=== PATIENT | female | born 1990 | race Caucasian/White ===

== ENCOUNTER 2016-11-07 08:04 | Outpatient (CLI) | payer OTHER ==
[2016-11-07 12:52] LABS: BASOPHILS % (AUTO) 0.5 %; EOSINOPHILS # (AUTO) 0.1 10^3/uL (0.0-0.7); EOSINOPHILS % (AUTO) 2.6 %; HCT - HEMATOCRIT 40.5 % (37.0-47.0); HGB - HEMOGLOBIN 13.8 g/dL (12.0-16.0); LYMPHOCYTES # (AUTO) 2.6 10^3/uL (1.5-3.5); LYMPHOCYTES % (AUTO) 46.3 %; MEAN CORPUSCULAR HEMOGLOBIN 28.6 pg (27.0-31.0); MEAN CORPUSCULAR HGB CONC 34.2 g/dL (32.0-36.0); MEAN CORPUSCULAR VOLUME 83.6 fL (81.0-99.0); MEAN PLATELET VOLUME 8.4 fL (7.9-10.8); MONOCYTES # (AUTO) 0.4 10^3/uL (0.0-1.0); MONOCYTES % (AUTO) 7.7 %; NEUTROPHILS # (AUTO) 2.4 10^3/uL (1.5-6.6); NEUTROPHILS % (AUTO) 42.9 %; RED BLOOD COUNT 4.84 10^6/uL (4.20-5.40); RED CELL DISTRIBUTION WIDTH 12.1 % (12.0-15.0); UNCORRECTED WHITE BLOOD COUNT 5.7 x10^3/uL; WHITE BLOOD COUNT 5.7 x10^3/uL (4.8-10.8)
[2016-11-07 12:54] LABS: H. PYLORI IGG ANTIBODY Negative (Negative); HPYLORI NEG QC Negative (Negative); HPYLORI POS QC POSITIVE (Positive)
[2016-11-07 13:16] LABS: BILIRUBIN,TOTAL 0.5 mg/dL (0.2-1.0); BUN - BLOOD UREA NITROGEN 10 mg/dL (6-20); CARBON DIOXIDE - CO2 25 mmol/L (21-32); CHLORIDE 104 mmol/L (101-111); CHOL/HDL RATIO 4.6 (<4.4); CHOLESTEROL 221 mg/dL; CREATININE 0.9 mg/dL (0.4-1.0); GFR - MDRD 76 (>89); GLUCOSE 92 mg/dL (70-100); HDL CHOLESTEROL 48 mg/dL; LDL/HDL RATIO 2.9 (<4.4); POTASSIUM 3.4 mmol/L (3.5-5.0); SODIUM 138 mmol/L (135-145); TOTAL PROTEIN 7.3 g/dL (6.7-8.2); TRIGLYCERIDES 160 mg/dL; VLDL CHOLESTEROL 32 mg/dL
== END 2016-11-07 08:05 | disposition home or self-care (01) ==
LOC: LAB.WCP 08:04
PROVIDERS: ATTEND Physician Assistant Medical
DX: Z00.00 Encounter for general adult medical examination without abnormal findings (principal); R10.13 Epigastric pain
CPT/HCPCS: 36415; 80053; 80061; 84443; 85025; 87339

== ENCOUNTER 2016-11-10 11:39 | Outpatient (CLI) | payer OTHER ==
--- NOTE | 2016-11-10 12:15 | Ultrasound Report ---
COMPLETE ABDOMINAL ULTRASOUND: 11/10/2016 CLINICAL INDICATION: Epigastric pain. TECHNIQUE: Real-time scanning was performed with signs and displays sales representative static images obtained. FINDINGS: The liver measures 13.3 cm. Hepatic echotexture is normal. No intrahepatic biliary dilatat ion or focal parenchymal lesion is present. The common bile duct measures 2 mm. The gallbladder is no rmal, as is the pancreas. The kidneys are normal, with the right measuring 10.0 cm, and the left nik uring 10.9 cm. The spleen measures 11.8 cm. A small splenule is noted in the splenic hilum. The abdom inal aorta is normal in caliber. The inferior vena cava is unremarkable. No free fluid is present. IMPRESSION: NORMAL ABDOMINAL ULTRASOUND. JOB #: [id number] EXT JOB #:[id number]
== END 2016-11-10 11:40 | disposition home or self-care (01) ==
LOC: DI 11:39
PROVIDERS: ATTEND Physician Assistant Medical
DX: R10.13 Epigastric pain (principal)
CPT/HCPCS: 76700

== ENCOUNTER 2016-12-09 12:16 | Outpatient (CLI) | payer OTHER ==
[2016-12-09] MEDS ORDERED: SODIUM CHLORIDE 0.9% IV ONE ×2 (16:29→16:47)
[2016-12-09] MEDS ORDERED: SINCALIDE IV ONE ×2 (16:29→16:47)
--- NOTE | 2016-12-09 16:33 | Nuclear Medicine Report ---
EXAM: HEPATOBILIARY SCAN WITH CCK/KINEVAC ADMINISTRATION EXAM DATE: 12/09/2016 03:50 PM. CLINICAL HISTORY: Epigastric pain. COMPARISON: Ultrasound 11/10/2016. TECHNIQUE: Following the intravenous administration of 5.3 mCi of Tc99m Mebrofenin, a hepatobiliary s can was done centered on the liver and gallbladder in multiple sequential images and projections. Following the intravenous administration of 2.1 mcg of CCK/ Kinevac over the course of approximately 60 minutes, dynamic imaging was done and the gallbladder ejection fraction was calculated. FINDINGS: Normal extraction of tracer from the blood pool indicating normal hepatocellular function. The liver size and shape is grossly within normal limits. Appearance of tracer in the biliary tree as early as 10 minutes, within normal limits. Appearance of tracer in the gallbladder as early as 10 minutes, within normal limits, with good progr ession of filling throughout the remainder of the initial hour. Appearance of tracer in the small bowel as early as 50 minutes, within normal limits. With CCK administration, the gallbladder demonstrates an effective contraction. The gallbladder eject ion fraction is calculated to be 51%, well above the lower limit of normal of 38% for a 60-minute inj ection. IMPRESSION: 1. Patent cystic duct. 2. Patent common bile duct. 3. Negative for acute or chronic cholecystitis. 4. Gallbladder ejection fraction of 51%. [facility] Referring Provider Line: [phone] SITE ID: [id number]
== END 2016-12-09 12:17 | disposition home or self-care (01) ==
LOC: DI 12:16
PROVIDERS: ATTEND Physician Assistant Medical
DX: R10.31 Right lower quadrant pain (principal)
CPT/HCPCS: 78227; A9537

== ENCOUNTER 2020-02-07 08:33 | Outpatient (CLI) | payer OTHER ==
--- NOTE | 2020-02-08 16:32 | Ultrasound Report ---
LIMITED ULTRASOUND OF LEFT BREAST: 02/07/2020 CLINICAL: Palpable left breast lump. No prior exams were available for comparison. Color flow and real-time ultrasound of the left breast 3 o'clock region were performed. Morelos scale images of the real-time examination were reviewed. There is a benign 0.3 cm x 0.3 cm x 0.4 cm oval cyst with a smooth internal wall in the left breast a t 3 o'clock anterior depth 4 cm from the nipple. This oval cyst is anechoic. This correlates as pal pated. Color flow imaging demonstrates that there is adjacent vascularity. IMPRESSION: BENIGN There is no sonographic evidence of malignancy. The 0.3 cm x 0.3 cm x 0.4 cm oval cyst in the left breast most likely is a simple cyst or a sebaceous cyst and is benign. Screening mammography beginning at age 40 is recommended. Findings and recommendations were conveyed to the patient at time of exam. This exam was interpreted at Station ID: [id number]. Electronically Signed By: Lexie pollock/:02/07/2020 09:31:42 Ultrasound BI-RADS: 2 Benign BI-RADS CATEGORY: (2) - 2 Unspecified - other recall n/a LATERALITY: (B)
== END 2020-02-07 08:34 | disposition home or self-care (01) ==
LOC: DI 08:33
PROVIDERS: ATTEND Physician Assistant Medical
DX: N60.02 Solitary cyst of left breast (principal)
CPT/HCPCS: 76642

== ENCOUNTER 2020-05-16 10:08 | Outpatient (CLI) | payer OTHER ==
[2020-05-16 10:37] LABS: BASOPHILS % (AUTO) 0.5 %; EOSINOPHILS # (AUTO) 0.4 10^3/uL (0.0-0.7); EOSINOPHILS % (AUTO) 4.8 %; HGB - HEMOGLOBIN 15.1 g/dL (12.0-16.0); LYMPHOCYTES # (AUTO) 2.7 10^3/uL (1.5-3.5); LYMPHOCYTES % (AUTO) 36.4 %; MEAN CORPUSCULAR HEMOGLOBIN 29.2 pg (27.0-31.0); MEAN CORPUSCULAR HGB CONC 33.5 g/dL (32.0-36.0); MEAN CORPUSCULAR VOLUME 87.1 fL (81.0-99.0); MEAN PLATELET VOLUME 9.3 fL (7.9-10.8); MONOCYTES # (AUTO) 0.5 10^3/uL (0.0-1.0); MONOCYTES % (AUTO) 6.9 %; NEUTROPHILS # (AUTO) 3.8 10^3/uL (1.5-6.6); NEUTROPHILS % (AUTO) 51.1 %; PLT - PLATELET COUNT 259 10^3/uL (130-450); RED BLOOD COUNT 5.18 10^6/uL (4.20-5.40); RED CELL DISTRIBUTION WIDTH 11.6 % (12.0-15.0); WHITE BLOOD COUNT 7.5 x10^3/uL (4.8-10.8)
[2020-05-16 11:13] LABS: ALBUMIN 4.2 g/dL (3.2-5.5); ALBUMIN/GLOBULIN RATIO 1.2 (1.0-2.2); ALKALINE PHOSPHATASE 71 IU/L (42-121); ALT ALANINE AMINOTRANSFERASE 24 IU/L (10-60); AST ASPARTATE AMINOTRANSFERASE 19 IU/L (10-42); BILIRUBIN,TOTAL 0.5 mg/dL (0.2-1.0); BUN - BLOOD UREA NITROGEN 18 mg/dL (6-20); CALCIUM 9.4 mg/dL (8.5-10.3); CARBON DIOXIDE - CO2 26 mmol/L (21-32); CHLORIDE 101 mmol/L (101-111); CHOL/HDL RATIO 4.5 (<4.4); CHOLESTEROL 230 mg/dL; CREATININE 0.8 mg/dL (0.4-1.0); GLUCOSE 96 mg/dL (70-100); HDL CHOLESTEROL 51 mg/dL; LDL CHOLESTEROL,CALCULATED 162 mg/dL; LDL/HDL RATIO 3.2 (<4.4); THYROID STIMULATING HORMONE 1.04 uIU/mL (0.34-5.60); TOTAL PROTEIN 7.7 g/dL (6.7-8.2); VLDL CHOLESTEROL 17 mg/dL
[2020-05-16 11:15] LABS: FREE T4 (FREE THYROXINE) 0.89 ng/dL (0.58-1.64)
== END 2020-05-16 10:09 | disposition home or self-care (01) ==
LOC: LAB 10:08
PROVIDERS: ATTEND Nurse Practitioner Obstetrics & Gynecology
DX: Z00.00 Encounter for general adult medical examination without abnormal findings (principal); N92.6 Irregular menstruation, unspecified
CPT/HCPCS: 36415; 80053; 80061; 82951; 83036; 83721; 84439; 84443; 85025

== ENCOUNTER 2021-08-16 14:38 | Outpatient (CLI) | payer OTHER ==
--- NOTE | 2021-08-16 16:03 | XRAY Report ---
PROCEDURE: Knee 4 View RT INDICATIONS: INTERNAL DERANGEMENT, RIGHT KNEE TECHNIQUE: 4 views of the right knee(s) were acquired. COMPARISON: None. FINDINGS: BONES/JOINT: No acute, displaced fracture or dislocation. Trace suprapatellar joint effusion. SOFT TISSUES: No significant abnormality. IMPRESSION: 1.No acute osseous abnormality. Magnetic resonance imaging may be helpful for further characterization. Reviewed by: Paul Hogan MD on 08/16/2021 4:02 PM PDT Approved by: Paul Hogan MD on 08/16/2021 4:02 PM PDT Station ID: [id number]
== END 2021-08-16 14:39 | disposition home or self-care (01) ==
LOC: DI.N 14:38
PROVIDERS: ATTEND Family Medicine
DX: M23.91 Unspecified internal derangement of right knee (principal); R42 Dizziness and giddiness
CPT/HCPCS: 36415; 80053; 84443; 84703; 85025

== ENCOUNTER 2021-08-16 14:42 | Outpatient (CLI) | payer OTHER ==
[2021-08-16 18:07] LABS: ALBUMIN 4.3 g/dL (3.2-5.5); ALBUMIN/GLOBULIN RATIO 1.3 (1.0-2.2); BILIRUBIN,TOTAL 0.6 mg/dL (0.2-1.0); CALCIUM 9.3 mg/dL (8.5-10.3); CREATININE 0.9 mg/dL (0.4-1.0); POTASSIUM 3.6 mmol/L (3.5-5.0); TOTAL PROTEIN 7.5 g/dL (6.7-8.2)
[2021-08-16 18:23] LABS: THYROID STIMULATING HORMONE 0.93 uIU/mL (0.34-5.60)
[2021-08-16 18:27] LABS: BASOPHILS % (AUTO) 0.5 %; EOSINOPHILS # (AUTO) 0.1 10^3/uL (0.0-0.7); EOSINOPHILS % (AUTO) 1.8 %; HCT - HEMATOCRIT 45.1 % (37.0-47.0); HGB - HEMOGLOBIN 15.4 g/dL (12.0-16.0); LYMPHOCYTES % (AUTO) 40.8 %; MEAN CORPUSCULAR HEMOGLOBIN 29.1 pg (27.0-31.0); MEAN CORPUSCULAR HGB CONC 34.1 g/dL (32.0-36.0); MEAN CORPUSCULAR VOLUME 85.1 fL (81.0-99.0); MEAN PLATELET VOLUME 11.1 fL (7.9-10.8); MONOCYTES # (AUTO) 0.4 10^3/uL (0.0-1.0); MONOCYTES % (AUTO) 5.2 %; NEUTROPHILS # (AUTO) 3.8 10^3/uL (1.5-6.6); NEUTROPHILS % (AUTO) 51.6 %; PLT - PLATELET COUNT 269 10^3/uL (130-450); RED CELL DISTRIBUTION WIDTH 11.7 % (12.0-15.0); WHITE BLOOD COUNT 7.3 x10^3/uL (4.8-10.8)
[2021-08-16 18:56] LABS: HCG,QUALITATIVE BLOOD NEGATIVE
== END 2021-08-16 14:43 | disposition home or self-care (01) ==
LOC: LAB.N 14:42
PROVIDERS: ATTEND Family Medicine
DX: R42 Dizziness and giddiness (principal)
CPT/HCPCS: 36415; 80053; 84443; 84703; 85025

== ENCOUNTER 2022-06-24 15:41 | Outpatient (CLI) | payer OTHER ==
[2022-06-24 17:44] LABS: BASOPHILS % (AUTO) 0.4 %; EOSINOPHILS # (AUTO) 0.1 10^3/uL (0.0-0.7); HCT - HEMATOCRIT 39.5 % (37.0-47.0); HGB - HEMOGLOBIN 13.7 g/dL (12.0-16.0); LYMPHOCYTES # (AUTO) 3.1 10^3/uL (1.5-3.5); LYMPHOCYTES % (AUTO) 29.8 %; MEAN CORPUSCULAR HEMOGLOBIN 29.3 pg (27.0-31.0); MEAN CORPUSCULAR HGB CONC 34.7 g/dL (32.0-36.0); MEAN CORPUSCULAR VOLUME 84.6 fL (81.0-99.0); MEAN PLATELET VOLUME 10.2 fL (7.9-10.8); MONOCYTES # (AUTO) 0.8 10^3/uL (0.0-1.0); NEUTROPHILS # (AUTO) 6.3 10^3/uL (1.5-6.6); NEUTROPHILS % (AUTO) 60.6 %; PLT - PLATELET COUNT 266 10^3/uL (130-450); RED BLOOD COUNT 4.67 10^6/uL (4.20-5.40); RED CELL DISTRIBUTION WIDTH 11.9 % (12.0-15.0); WHITE BLOOD COUNT 10.4 x10^3/uL (4.8-10.8)
[2022-06-24 17:49] LABS: BILIRUBIN,URINE NEGATIVE (NEGATIVE); GLUCOSE, URINE (UA) NEGATIVE (NEGATIVE); KETONES,URINE (UA) NEGATIVE (NEGATIVE); LEUKOCYTE ESTERASE, URINE TRACE (NEGATIVE); NITRITE,URINE NEGATIVE (NEGATIVE); OCCULT BLOOD,URINE TRACE-INTA (NEGATIVE); PROTEIN,URINE NEGATIVE (NEGATIVE); UROBILINOGEN,URINE 0.2 (NORMAL) E.U./dL (NORMAL)
[2022-06-24 17:50] LABS: CLARITY,URINE CLEAR (CLEAR)
[2022-06-24 17:53] LABS: BACTERIA,URINE Few /HPF (None Seen); RBC,URINE 0-5 /HPF (0-5); SQUAMOUS EPITHELIAL CELL,UR FEW Squamous (<= Few)
[2022-06-25 05:11] LABS: HCV AB Non Reactive (Non Reactive); HIV SCREEN 4TH GENERATION Non Reactive (Non Reactive)
[2022-06-25 06:10] LABS: HBsAG SCREEN Negative (Negative)
[2022-06-25 07:10] LABS: RPR Non Reactive (Non Reactive)
[2022-06-25 11:11] LABS: VARICELLA-ZOSTER AB IGG <135 index (Immune >165)
== END 2022-06-24 15:42 | disposition home or self-care (01) ==
LOC: LAB.N 15:41
PROVIDERS: ATTEND Obstetrics & Gynecology
DX: Z34.90 Encounter for supervision of normal pregnancy, unspecified, unspecified trimester (principal)
CPT/HCPCS: 36415; 81001; 85025; 86592; 86762; 86787; 86803; 86850; 86900; 86901; 87086; 87340; 87389

== ENCOUNTER 2022-07-04 13:02 | Outpatient (CLI) | payer OTHER ==
--- NOTE | 2022-07-04 17:53 | Ultrasound Report ---
PROCEDURE: OB First Trimester w/TV INDICATIONS: POSITIVE TEST OUTSIDE/PRIOR DATING DATA: Last menstrual period (LMP): 05/02/2022. LMP-based estimated date of delivery (ARIADNE): 02/06/2023. First dating scan (date and location): 07/04/2022. Estimated date of delivery (ARIADNE) from first dating scan: 02/14/2023. The below data below was generated using the working ARIADNE of 02/14/2023 TECHNIQUE: Real-time scanning was performed of the fetus and maternal pelvic organs, with image documentation. Endovaginal scanning was also performed to better visualize the fetus and maternal ovaries. COMPARISON: None FINDINGS: Embryo: Single intrauterine gestational sac containing pole measuring 1.52 cm corresponding wi th a 7 week 6 day gestation. Heart rate: 155 bpm Small perigestational bleed measures 0.9 x 2.5 x 0.3 cm Measurement variability in dating: +/- 4 weeks by LMP, +/- 7 days by mean sac diameter (use before 6 weeks gestation if crown-rump length not able to be measured), +/- 5 days by crown-rump length (6-12 weeks gestation). Maternal organs: Cervix measures 2.8 cm in length, closed IMPRESSION: Single live intrauterine corresponds with a 7 week 6 day gestation. Small perigestational bleed Reviewed by: Williams Hou MD on 07/04/2022 4:52 PM EMILIANO Approved by: Williams Hou MD on 07/04/2022 4:52 PM AKANILA Station ID: [id number]
== END 2022-07-04 13:03 | disposition home or self-care (01) ==
LOC: DI 13:02
PROVIDERS: ATTEND Obstetrics & Gynecology
DX: O20.8 Other hemorrhage in early pregnancy (principal); Z3A.01 Less than 8 weeks gestation of pregnancy

== ENCOUNTER 2022-08-29 15:04 | Outpatient (CLI) | payer OTHER | END 2022-08-29 15:05 | disposition home or self-care (01) | LOC: LAB.N 15:04 | PROVIDERS: ATTEND Nurse Practitioner | DX: Z53.9 Procedure and treatment not carried out, unspecified reason (principal) ==

== ENCOUNTER 2022-09-01 13:35 | Outpatient (CLI) | payer OTHER | END 2022-09-01 13:36 | disposition home or self-care (01) | LOC: LAB 13:35 | PROVIDERS: ATTEND Nurse Practitioner | DX: Z36.8A Encounter for antenatal screening for other genetic defects (principal) ==

== ENCOUNTER 2022-09-30 17:16 | Outpatient (CLI) | payer OTHER ==
--- NOTE | 2022-10-01 13:37 | Ultrasound Report ---
PROCEDURE: OB Detailed Eval INDICATIONS: SUPERVISION OF OUTSIDE/PRIOR DATING DATA: Last menstrual period (LMP): 05/02/2022. LMP-based estimated date of delivery (ARIADNE): 02/06/2023. First dating scan (date and location): 07/04/2022. Estimated date of delivery (ARIADNE) from first dating scan: 02/14/2023. The below data below was generated using the working ARIADNE of 02/14/2023 TECHNIQUE: Real-time scanning was performed of the fetus, with image documentation and biometric measurements. Endovaginal scanning: None COMPARISON: None. FINDINGS: General: A single living intrauterine gestation is present. Presentation: Transverse Placenta: Placental position is anterior, without previa. Amniotic fluid index: 17.6 cm, within normal limits for gestational age. heart rate: 133 beats per minute. Maternal cervical canal: 6.1 cm long; normal length is 2.5 cm or more. biometrics: Biparietal diameter: 4.6 cm, 20 week 1 day Head circumference: 18.1 cm, 20 week 4 day Abdominal circumference: 14.4 cm, 19 week 5 day Femur length: 3.2 cm, 20 week 0 day Estimated gestational age from initial scan: 20 week 3 day Composite gestational age from present scan: 20 week 1 day Estimated weight and percentile: 323 g, 21.7 percentile Measurement variability in biometric dating: +/- 10 days from 12-20 weeks gestation, +/- 2 weeks from 20-30 weeks gestation, +/- 3 weeks at 30 weeks gestation or later. Anatomic survey: Neuro: Ventricles are normal at less than 10 mm. Cisterna magna and cerebellum not well seen Nuchal skin fold: Not imaged Face: Nose and lips, facial profile are normal. Spine: Not well seen Heart: Not well seen Diaphragm: Diaphragm is intact. Stomach: Left-sided stomach is present. Kidneys: No hydronephrosis. Normal is less than 5 mm in 2nd trimester, less than 7 mm in 3rd trimester. Cord: 3 vessel cord has orthotopic insertion. Bladder: Normal in size. Extremities: All 4 extremities are visualized. IMPRESSION: Single live intrauterine consistent with 20 week 1 day gestation by current ultrasound. cerebellum, cisterna magna, spine and heart are not well visualized on the current exam. Remain julianne of the anatomic survey is within normal limits. Reviewed by: Williams Hou, MD on 10/01/2022 12:36 PM EMILIANO Approved by: Williams Hou MD on 10/01/2022 12:36 PM EMILIANO Station ID: [id number]
== END 2022-09-30 17:17 | disposition home or self-care (01) ==
LOC: DI 17:16
PROVIDERS: ATTEND Nurse Practitioner
DX: Z34.01 Encounter for supervision of normal first pregnancy, first trimester (principal)

== ENCOUNTER 2022-10-17 14:48 | Outpatient (CLI) | payer OTHER ==
--- NOTE | 2022-10-18 03:04 | Ultrasound Report ---
PROCEDURE: OB F/U or Repeat INDICATIONS: SUPERVISION OF OUTSIDE/PRIOR DATING DATA: Last menstrual period (LMP): 05/02/2022. LMP-based estimated date of delivery (ARIADNE): 02/06/2023. First dating scan (date and location): 07/04/2022. Estimated date of delivery (ARIADNE) from first dating scan: 02/14/2023. The below data below was generated using the working ARIADNE of 02/14/2023 TECHNIQUE: Real-time scanning was performed of the fetus, with image documentation and biometric measurements. COMPARISON: 07/04/2022, 09/30/2022. FINDINGS: General: A single living intrauterine gestation is present. Presentation: Transverse with head to maternal left Placenta: Placental position is anterior, without previa. Amniotic fluid index: 14.7 cm, within normal limits for gestational age. Deepest pocket: 4.6 cm heart rate: 143 beats per minute. Maternal cervical canal: 4.8 cm long; normal length is 2.5 cm or more. Estimated gestational age from initial scan: 22 weeks 0 days Other: cerebellum, cisterna magna, and spine appear within normal limits. A four-chamber heart is demonstrated. Right and left ventricular outflow tracts appear grossly within normal limits with suboptimal visualization of the left ventricular outflow tract. IMPRESSION: 1. Single living intrauterine redemonstrated. 2. cerebellum, cisterna magna, spine appear within normal limits. heart also appears darrick sly within normal limits, with the left ventricular outflow tract suboptimally visualized. Reviewed by: Raghav Canseco MD on 10/18/2022 3:03 AM PDT Approved by: Raghav Canseco MD on 10/18/2022 3:03 AM PDT Station ID: [id number]
== END 2022-10-17 14:49 | disposition home or self-care (01) ==
LOC: DI 14:48
PROVIDERS: ATTEND Nurse Practitioner
DX: Z34.02 Encounter for supervision of normal first pregnancy, second trimester (principal)

== ENCOUNTER 2022-11-13 15:25 | Outpatient (CLI) | payer OTHER ==
[2022-11-13 16:36] LABS: HCT - HEMATOCRIT 35.8 % (37.0-47.0); HGB - HEMOGLOBIN 12.2 g/dL (12.0-16.0); MEAN CORPUSCULAR HEMOGLOBIN 28.8 pg (27.0-31.0); MEAN CORPUSCULAR HGB CONC 34.1 g/dL (32.0-36.0); MEAN CORPUSCULAR VOLUME 84.6 fL (81.0-99.0); MEAN PLATELET VOLUME 9.8 fL (7.9-10.8); RED BLOOD COUNT 4.23 10^6/uL (4.20-5.40)
== END 2022-11-13 15:26 | disposition home or self-care (01) ==
LOC: LAB 15:25
PROVIDERS: ATTEND Obstetrics & Gynecology
DX: O99.212 Obesity complicating pregnancy, second trimester (principal)
CPT/HCPCS: 36415; 82950; 85027

== ENCOUNTER 2022-11-17 08:03 | Outpatient (CLI) | payer OTHER ==
[2022-11-17 09:07] LABS: GTT GLUCOSE,FASTING 90 mg/dL (74-109)
== END 2022-11-17 08:04 | disposition home or self-care (01) ==
LOC: LAB 08:03
PROVIDERS: ATTEND Obstetrics & Gynecology
DX: O99.810 Abnormal glucose complicating pregnancy (principal)
CPT/HCPCS: 36415; 82951; 82952

== ENCOUNTER 2022-12-21 12:00 | Outpatient (CLI) | payer OTHER ==
--- NOTE | 2022-12-21 13:21 | Ultrasound Report ---
PROCEDURE: OB F/U or Repeat INDICATIONS: OBESITY OUTSIDE/PRIOR DATING DATA: Last menstrual period (LMP): 05/02/2022. LMP-based estimated date of delivery (ARIADNE): 02/06/2023. First dating scan (date and location): 07/04/2022. Estimated date of delivery (ARIADNE) from first dating scan: 02/14/2023. TECHNIQUE: Real-time scanning was performed of the fetus, with image documentation and biometric measurements. Endovaginal scanning: Not performed. COMPARISON: 10/17/2022 FINDINGS: General: A single living intrauterine gestation is present. Presentation: Vertex Placenta: Placental position is anterior, without previa. Amniotic fluid index: 9.7 cm, within normal limits for gestational age. heart rate: 122 beats per minute. Maternal cervical canal: 3.5 cm long; normal length is 2.5 cm or more. Limited survey of anatomy includes normal four-chamber heart view, left right ventricular outfl ow tracts, stomach/abdomen, chest/diaphragm, and urinary bladder/pelvis. IMPRESSION: 1. Single living intrauterine gestation. 2. Normal limited survey of anatomy. Reviewed by: Brynn Cisneros MD on 12/21/2022 1:20 PM PDT Approved by: Brynn Cisneros MD on 12/21/2022 1:20 PM PDT Station ID: [id number]
== END 2022-12-21 12:01 | disposition home or self-care (01) ==
LOC: DI 12:00
PROVIDERS: ATTEND Nurse Practitioner
DX: O99.212 Obesity complicating pregnancy, second trimester (principal); Z3A.00 Weeks of gestation of pregnancy not specified

== ENCOUNTER 2023-01-06 20:23 | Outpatient (CLI) | payer OTHER ==
--- NOTE | 2023-01-07 21:48 | Ultrasound Report ---
PROCEDURE: OB F/U or Repeat INDICATIONS: OBESITY OUTSIDE/PRIOR DATING DATA: Last menstrual period (LMP): 05/02/2022. LMP-based estimated date of delivery (ARIADNE): 02/06/2023. First dating scan (date and location): 07/04/2022. Estimated date of delivery (ARIADNE) from first dating scan: 02/14/2023. Working ARIADNE: 02/14/2023. TECHNIQUE: Real-time scanning was performed of the fetus, with image documentation and biometric measurements. Endovaginal scanning: Not performed. COMPARISON: OB ultrasound, 12/21/2022. FINDINGS: General: A single living intrauterine gestation is present. Presentation: Vertex Placenta: Placental position is anterior, without previa. Amniotic fluid index: 10.9 cm, the largest pocket 5.3 cm. heart rate: 124 beats per minute. Maternal cervical canal: Closed but suboptimally seen. biometrics: Biparietal diameter: 33 weeks 0 day Head circumference: 35 weeks 1 day Abdominal circumference: 33 weeks 3 days Femur length: 33 weeks 2 days Estimated gestational age from initial scan: 34 weeks 3 days. Composite gestational age from present scan: 33 weeks 5 days Estimated weight and percentile: 2028.7 g; 20.2%. Measurement variability in biometric dating: +/- 10 days from 12-20 weeks gestation, +/- 2 weeks from 20-30 weeks gestation, +/- 3 weeks at 30 weeks gestation or more. Other: Nuchal cord is noted. IMPRESSION: 1. A single living IUP is again demonstrated. The interval growth is within normal limits. 2. Estimated weight is at 20.2% for gestational age. 3. DENISA 10.9 cm. 4. Nuchal cord. Reviewed by: Belinda King MD on 01/07/2023 9:47 PM PDT Approved by: Belinda King MD on 01/07/2023 9:47 PM PDT Station ID: [id number]
== END 2023-01-06 20:24 | disposition home or self-care (01) ==
LOC: DI 20:23
PROVIDERS: ATTEND Obstetrics & Gynecology
DX: O99.213 Obesity complicating pregnancy, third trimester (principal); O99.810 Abnormal glucose complicating pregnancy; Z3A.33 33 weeks gestation of pregnancy

== ENCOUNTER 2023-01-14 10:42 | Outpatient (CLI) | payer OTHER ==
[2023-01-14 10:56] LABS: BASOPHILS % (AUTO) 0.2 %; EOSINOPHILS # (AUTO) 0.1 10^3/uL (0.0-0.7); EOSINOPHILS % (AUTO) 0.6 %; HCT - HEMATOCRIT 41.8 % (37.0-47.0); HGB - HEMOGLOBIN 14.3 g/dL (12.0-16.0); LYMPHOCYTES % (AUTO) 16.2 %; MEAN CORPUSCULAR HEMOGLOBIN 28.4 pg (27.0-31.0); MEAN CORPUSCULAR HGB CONC 34.2 g/dL (32.0-36.0); MEAN CORPUSCULAR VOLUME 83.1 fL (81.0-99.0); MEAN PLATELET VOLUME 10.6 fL (7.9-10.8); MONOCYTES # (AUTO) 0.8 10^3/uL (0.0-1.0); MONOCYTES % (AUTO) 6.2 %; NEUTROPHILS # (AUTO) 9.4 10^3/uL (1.5-6.6); PLT - PLATELET COUNT 217 10^3/uL (130-450); RED BLOOD COUNT 5.03 10^6/uL (4.20-5.40); RED CELL DISTRIBUTION WIDTH 12.4 % (12.0-15.0); WHITE BLOOD COUNT 12.4 x10^3/uL (4.8-10.8)
[2023-01-14 11:11] LABS: CREATININE,URINE 162.7 mg/dL; PROTEIN/CREATININE RATIO,URINE 0.2 (<=0.2)
[2023-01-14 11:26] LABS: ESTIMATED AVERAGE GLUCOSE 97 mg/dL (70-100)
== END 2023-01-14 10:43 | disposition home or self-care (01) ==
LOC: LAB 10:42
PROVIDERS: ATTEND Nurse Practitioner
DX: O99.891 Other specified diseases and conditions complicating pregnancy (principal); R19.7 Diarrhea, unspecified; R51.9 Headache, unspecified
CPT/HCPCS: 36415; 82570; 83036; 84156; 84443; 85025

== ENCOUNTER 2023-01-23 08:00 | Outpatient (CLI) | payer OTHER | END 2023-01-23 23:59 | disposition home or self-care (01) | LOC: LAB.WC 08:00 | PROVIDERS: ATTEND Obstetrics & Gynecology | DX: Z36.85 Encounter for antenatal screening for Streptococcus B (principal) | CPT/HCPCS: 87797 ==

== ENCOUNTER 2023-11-28 11:56 | Outpatient (CLI) | payer OTHER ==
--- NOTE | 2023-11-29 21:39 | XRAY Report ---
PROCEDURE: Wrist 1-2V RT INDICATIONS: PAIN IN RIGHT WRIST TECHNIQUE: 2 views of the wrist were acquired. COMPARISON: None. FINDINGS: Bones: No fractures or dislocations. No suspicious bony lesions. Soft tissues: No suspicious soft tissue calcifications or masses. IMPRESSION: No acute bony abnormality. Reviewed by: Yunior De Dios MD on 11/29/2023 9:37 PM PDT Approved by: Yunior De Dios MD on 11/29/2023 9:37 PM PDT Station ID: [id number]
== END 2023-11-28 11:57 | disposition home or self-care (01) ==
LOC: DI 11:56
PROVIDERS: ATTEND Nurse Practitioner
DX: M25.531 Pain in right wrist (principal)

== ENCOUNTER 2025-03-09 13:38 | Inpatient (IN) ==
[2025-03-09 14:16] LABS: HCT - HEMATOCRIT 39.9 % (37.0-47.0); HGB - HEMOGLOBIN 13.4 g/dL (12.0-16.0); MEAN PLATELET VOLUME 11.9 fL (7.9-10.8); NRBC ABSOLUTE COUNT (AUTO) 0.00 x10^3/uL; NUCLEATED RED BLOOD CELLS AUTO 0.0 /100WBC; PLT - PLATELET COUNT 196 10^3/uL (130-450); RED CELL DISTRIBUTION WIDTH 13.0 % (12.0-15.0)
[2025-03-09 14:29] LABS: ALT ALANINE AMINOTRANSFERASE 18.0 IU/L (10-60); AST ASPARTATE AMINOTRANSFERASE 20.0 IU/L (10-42); BUN - BLOOD UREA NITROGEN 9.0 mg/dL (6-20); CARBON DIOXIDE - CO2 20.0 mmol/L (21-32); CREATININE 0.8 mg/dL (0.6-1.3); GFR - MDRD 82.0 (>89)
[2025-03-09] MEDS ORDERED: ceFAZolin (2G) 2 GM in SODIUM CHLORIDE 0.9% MINIBAG 100 ML IV ONE (15:26)
--- NOTE | 2025-03-09 15:31 | HISTORY & PHYSICAL EXAMINATION ---
Admit History Visit Reason Visit Reason: Other (Headache, elevated blood pressure) : 2 Parity: 1 Care: positive [facility] Risk/History: positive Previous Complications This : positive Gestational diabetes and Pre- eclampsia Smoking Status: Never smoker Mother's Labs Mother's Blood Type: positive A Mother's RH: positive Positive GBS: positive Group B Strep Positive Rubella Status: positive Immune Other Maternal History Other Maternal History: Rhoda is a 35 yo at 38+1 wks sent to [facility] triage after calling clinic with concern about home BP's 140s/90-100s x 2 days and dull headache. She was seen in triage 03/05 and had a single BP elevation and urine PCR 0.3. She was advised that if she had a recurrent elevated BP, she would meet criteria for preE, and delivery would be recommended. She is planning for repeat with tubal sterilization. This was previously scheduled for 03/16. She has been NPO since [id number] this morning. She reports good movement and denies vaginal bleeding or leakage of fluid. Specific Issues/Plans LMP: 06/05/24 ARIADNE by LMP: 03/12/25 US:08/10/2024 @ 8+0 ARIADNE 03/22/25 NOT c/w LMP Final ARIADNE: 03/22/2025 Problems: RCS, BMI >35, Hx GHTN. plan repeat cs with sterilization around 03/16. ASA to start 12 weeks. on metformin to conceive. Stopped at 10 weeks. baby Kilo, daughter is Melissa. Russell. A2 Gestational diabetes. -Using CGM -All fastings , so metformin started at 28 weeks. 02/02 starting lantus 10 at hs.Currently 12 units. -US for growth monthly. Pending Scheduled 03/17 -NST weekly. losing weight. zofran 10/25. bad headaches daily reported 10/25. Toradol 60 mg im given. Pre- Weight: 225 BMI: 38.6 Blood type: A+ Antibody: negative CBC: H/H/PLT 14.0/41.1/246 RUB:Immune VZV:Immune HBsAg: Neg HepC: NR RPR/AB-EIA:NR HIV: NR PAP: 03/2023 - normal GC/CT: patient declines, neg last . HSV: denies in self and partner Genetic testing: NIPT neg Covid: 01/02/25 Flu:01/02/25 FAS: Placenta: posterior w/o previa Cord:3VC DENISA:wnl EFW:343g, 77th%ile 50gm OGCT:171- Has CGM, A2 GDM 3HR GTT: declined. TDAP: 01/02/2025 Breast Pump: has one 3rd trimester: CBC: 12.7/38.2/224 RPR: Nonreactive GBS:Positive. Penicillin allergy Delivery plan: repeat c sectio Contraception HPI Current : Current EDU 03/22/25 Gestation 38 Weeks and 1 Days Para 1 Vital Signs Temperature 36.6 C 03/09/25 14:24 Pulse Rate 88 03/09/25 14:17 Respiratory Rate 17 03/09/25 14:05 Blood Pressure 107/76 03/09/25 15:00 O2 Saturation 98 03/09/25 14:05 NST Procedure NST Procedure: NST Procedure Start Date 03/09/25 Start Time 13:48 Stop Time 14:20 Vibroacoustic Stimulation Used No Patient States Movement Yes Meds/Allgy Home Medications Ambulatory Orders Medication Instructions Recorded Confirmed albuterol sulfate 90 mcg/actuation 2 inh inhalation Q6 H PRN 04/11/24 03/03/25 breath activated powder inhaler (ProAir RespiClick) vits no.126-ferrous fum tab PO 07/29/2403/03 28 mg iron-folic acid 800 mcg tablet (Classic ) cholecalciferol (vitamin D3) 50 50 mcg PO QDAY 5 03/03/25 mcg (2,000 unit) capsule ondansetron HCl 4 mg tablet 4 mg PO Q6H PRN nausea and 10/25/24 03/03/25 Held on 02/17/25. vomiting #30 tabs Instructions: Per Patient ferrous sulfate 325 mg (65 mg 325 mg PO Q OTHER DAY #9 0 tabs 11/18/24 03/03/25 iron) tablet (FeroSul) metoclopramide HCl 5 mg tablet 5 mg PO Q8H PRN headach e #10 tabs 12/12/24 03/03/25 (Reglan) Held on 02/17/25. Instructions: Per Patient blood-glucose sensor #3 ea 01/02/25 03/03/25 metformin 500 mg tablet 1,000 mg (2 x 500 mg) PO BID #180 01/08/25 03/03/25 tabs blood-glucose sensor (Dexcom G7 #3 ea 02/02/25 5 Sensor device) insulin syringe-needle U-100 0.3 #100 ea 02/08/2502/05 mL 31 gauge x 5/16" (CareTouch Insulin Syringe) pen needle, diabetic 29 gauge x #100 ea 02/08/2503/03/" (Ultra-Thin II Insulin Pen [place]) insulin glargine 100 unit/mL (3 12 unit subcut QPM 03/03/25 mL) subcutaneous pen (Lantus Solostar U-100 Insulin) Allergies Allergies Allergy/AdvReac Type Severity Reaction Status Date / Time penicillin V Allergy Unknown Verified 02/17/25 14:25 PFSH Active Problems All Active Problems (Updated 03/09/25 @ 15:43 by Nita Palacio MD) Request for sterilization (Acute) 38 weeks gestation of (Acute) Maternal obesity syndrome in third trimester (Acute) Uterine scar from previous delivery complicating (Acute) White classification A2 gestational diabetes mellitus (GDM), insulin controlled (Acute) Pre-eclampsia in third trimester (Acute) Proteinuria affecting (Acute) Elevated blood pressure reading without diagnosis of hypertension (Acute) GBS (group B Streptococcus carrier), +RV culture, currently (Acute) Gestational diabetes requiring insulin (Acute) Supervision of high risk in third trimester (Acute) Fatigue (Acute) Polycystic ovarian syndrome (Acute) Hirsutism (Acute) Irregular menses (Acute) HTN (hypertension) (Acute) BMI 40.0-44.9, adult (Acute) Surgical History Surgical History H/O: Family History Family History Maternal grandfather Prostate cancer Aunt Breast cancer Multiple sclerosis Social History Social History (Updated 12/16/24 @ 13:19 by Altagracia Jennings MA) Smoking Status: Never smoker Do you dip or chew tobacco?: No Do you vape?: No Do you feel safe in your home environment?: Yes History of physical, verbal, emotional, or financial abuse?: No ETOH Use: None Substance Use: denies use POLST POLST CPR Status: Attempt Resuscitation (CPR) Level of Medical Intervention: Full Treatment Review of Systems Status of ROS: 10 or more systems reviewed and unremarkable except as noted in history and below Physical Abdominal Exam Vital Signs: Temp Pulse Resp BP Pulse Ox 36.6 C 88 17 107/76 98 03/09/25 14:24 03/09/25 14:17 03/09/25 14:05 03/09/25 15:00 03/09/25 14:05 Contraction Frequency (min/apart): Q 3-4 min, not felt much by patient Contraction Intensity: positive Mild Uterine Resting Tone: positive Soft Monitoring Heart Rate Baseline: 120s Strip Review: positive Category I Vaginal Exam Membranes: positive Membranes intact Plan for Labor Plan For Labor I expect patient to be DC'd or transferred within 96 hours.: Yes Conclusion/Plan Problem List (1) Pre-eclampsia in third trimester: Plan: at 38+1 wks with prior and notable for GDM A2, obesity, and previous elevated BP/proteinuria. Pt is now meeting blood pressure criteria for preE and also has a persistent dull headache. - Recommend delivery via repeat at this time. She has been NPO since [id number]. Will attempt to deliver once OR ready, around 1600. - Reviewed surgical plan and risks of delivery, including bleeding, infection, injury to surroundng organs, and anesthesia risks (spinal risks, blood clots, heart attack, stroke, ). Also reviewed plan for tubal sterilization, including technique (salpingectomy, removal of the tube), elective part of procedure that may not be completed if unsafe to do so, and risks (regret, bleeding, failure). Pt verbalizes continued desire for tubal sterilization. - Admit and prepare for surgery/delivery. Plan for routine postop care thereafter. - VTE prophy: SCDs; with hx obesity and HTN, consider Lovenox postop until ambulatory. - Preop antibiotics: Ancef 2 gm IV (hx PCN allergy when a child, unk reaction but not anaphylaxis) (2) White classification A2 gestational diabetes mellitus (GDM), insulin controlled: (3) Request for sterilization: (4) Uterine scar from previous delivery complicating : (5) Maternal obesity syndrome in third trimester: (6) 38 weeks gestation of : Lab Results Lab results reviewed: Yes 03/09/25 14:00 03/09/25 14:00
[2025-03-09] MEDS: LACTATED RINGERS 1,000 ML IV SCH (15:42)
[2025-03-09] MEDS: CITRIC ACID/SODIUM CITRATE 15 ML UDC PO ONE (15:44)
--- NOTE | 2025-03-09 15:47 | ANESTHESIA PROCEDURE NOTE ---
Pre-Anesthesia VS, & Labs Diagnosis Surgical Diagnosis:: Pre-E, Gestational DM Procedure Procedure: Repeat Section Vitals Vital Signs: Temp Pulse Resp BP Pulse Ox 36.6 C 88 17 107/76 98 03/09/25 14:24 03/09/25 14:17 03/09/25 14:05 03/09/25 15:00 03/09/25 14:05 NPO NPO: >8 hours Is Patient ?: Yes Lab Results Current Lab Results: Laboratory Tests 03/09/25 14:00: WBC 12.2 H, RBC 4.80, Hgb 13.4, Hct 39.9, MCV 83.1, MCH 27.9, MCHC 33.6, RDW 13.0, Plt Count 196, MPV 11.9 H, Neut # (Auto) 8.3 H, Lymph # (Auto) 2.9, Hodgeman # (Auto) 0.8, Eos # (Auto) 0.2, Baso # (Auto) 0.0, Absolute Nucleated RBC 0.00, Nucleated RBC % 0.0, Sodium 135, Potassium 3.7, Chloride 105, Carbon Dioxide 20 L, Anion Gap 10.0, BUN 9, Creatinine 0.8, Estimated GFR (MDRD) 82 L, Glucose 70 L, Calcium 8.9, Total Bilirubin 0.5, AST 20, ALT 18, A lkaline Phosphatase 219 H, Total Protein 6.8, Albumin 3.6, Globulin 3.2, Albumin/Globulin Ratio 1.1, Blood Type A POSITIVE, Antibody Screen NEGATIVE Lab results reviewed: Yes 03/09/25 14:00 03/09/25 14:00 Meds/Allgy Home Medications Ambulatory Orders Medication Instructions Recorded Confirmed albuterol sulfate 90 mcg/actuation 2 inh inhalation Q6 H PRN 04/11/24 03/03/25 breath activated powder inhaler (ProAir RespiClick) vits no.126-ferrous fum tab PO 07/29/2403/03 28 mg iron-folic acid 800 mcg tablet (Classic ) cholecalciferol (vitamin D3) 50 50 mcg PO QDAY 5 03/03/25 mcg (2,000 unit) capsule ondansetron HCl 4 mg tablet 4 mg PO Q6H PRN nausea and 10/25/24 03/03/25 Held on 02/17/25. vomiting #30 tabs Instructions: Per Patient ferrous sulfate 325 mg (65 mg 325 mg PO Q OTHER DAY #9 0 tabs 11/18/24 03/03/25 iron) tablet (FeroSul) metoclopramide HCl 5 mg tablet 5 mg PO Q8H PRN headach e #10 tabs 12/12/24 03/03/25 (Reglan) Held on 02/17/25. Instructions: Per Patient blood-glucose sensor #3 ea 01/02/25 03/03/25 metformin 500 mg tablet 1,000 mg (2 x 500 mg) PO BID #180 01/08/25 03/03/25 tabs blood-glucose sensor (Dexcom G7 #3 ea 02/02/25 5 Sensor device) insulin syringe-needle U-100 0.3 #100 ea 02/08/2502/05 mL 31 gauge x 5/16" (CareTouch Insulin Syringe) pen needle, diabetic 29 gauge x #100 ea 02/08/2503/03" (Ultra-Thin II Insulin Pen [place]) insulin glargine 100 unit/mL (3 12 unit subcut QPM 03/03/25 mL) subcutaneous pen (Lantus Solostar U-100 Insulin) Allergies Allergies Allergy/AdvReac Type Severity Reaction Status Date / Time penicillin V Allergy Unknown Verified 02/17/25 14:25 [facility] Active Problems All Active Problems Request for sterilization (Acute) 38 weeks gestation of (Acute) Maternal obesity syndrome in third trimester (Acute) Uterine scar from previous delivery complicating (Acute) White classification A2 gestational diabetes mellitus (GDM), insulin controlled (Acute) Pre-eclampsia in third trimester (Acute) Proteinuria affecting (Acute) Elevated blood pressure reading without diagnosis of hypertension (Acute) GBS (group B Streptococcus carrier), +RV culture, currently (Acute) Gestational diabetes requiring insulin (Acute) Supervision of high risk in third trimester (Acute) Fatigue (Acute) Polycystic ovarian syndrome (Acute) Hirsutism (Acute) Irregular menses (Acute) HTN (hypertension) (Acute) BMI 40.0-44.9, adult (Acute) Surgical History Surgical History H/O: Family History Family History Maternal grandfather Prostate cancer Aunt Breast cancer Multiple sclerosis Social History Social History Smoking Status: Never smoker Do you dip or chew tobacco?: No Do you vape?: No Do you feel safe in your home environment?: Yes History of physical, verbal, emotional, or financial abuse?: No ETOH Use: None Substance Use: denies use Anesthesia Exam (Expanded) Exam General: Alert and Oriented x3 Dental: WNL Mouth Openin Fingerbreadth Neck Mobility: Normal Mallampati classification: II Thyromental Distance: 4-6 cm Respiratory: Lungs clear and Normal breath sounds Cardiovascular: Regular rate Neurological: Normal gait and Normal speech Mental/Cognitive Status: Alert/Oriented X3 and Normal for patient Cognitive Status: Within normal limits Exam Exam Vital Signs: Vital Signs x48h Temp Pulse Pulse Resp BP BP Pulse Ox 03/09/25 15:00 107/76 03/09/25 14:30 119/80 03/09/25 14:24 36.6 C 03/09/25 14:17 88 114/78 03/09/25 14:05 36.6 C 123 H 17 118/97 H 03/09/25 14:05 36.6 C 126 H 17 118/97 H 98 Constitutional normal general appearance and no apparent distress HENMT dentition normal Neck/C-Spine cervical full ROM noted Respiratory breath sounds equal bilaterally and normal respiratory effort Cardiovascular normal heart rate noted and regular rhythm noted Gastrointestinal nausea Extremities normal to inspection Plan Plan Anesthesia Type: Spinal Regional Block: Per Surgeon's request for Post Op pain control Consent for Procedure(s) Verified and Reviewed: Yes Code Status: Attempt Resuscitation ASA Classification ASA classification: 2-Mild systemic disease Is this case an emergency?: Yes
[2025-03-09] MEDS ORDERED: fentaNYL 100 MCG/2 ML VIAL ONE (15:51)
--- OUTSIDE RECORDS SUMMARY | 2025-03-09 15:58 | EXTERNAL MEDICAL SUMMARY RPT | Continuity of Care Document ---
Author Organization [facility] Address [address] [place] [id number] Phone Problems date description facility 2024-12-18 00:02 Encounter for superv ision of normal , unspecified, unspecified trimester [facility] 2024-12-19 13:25 Encounter for superv ision of other normal , [facility] 2024-12-19 13:26 Encounter for superv ision of other normal , second trimester [facility] 2024-12-19 13:26 26 weeks gestation of [facility] 2025-01-03 00:02 Gestational diabetes mellitus in , controlled by [facility] hypoglycemic [facility] 2025-01-03 00:02 Encounter for immunization [employer] [facility] 2025-01-03 12:20 Gestational diabetes mellitus in , controlled by [facility]25-[facility]-04 11:46 Gestational diabetes mellitus in , controlled by oral hypoglycemic drugs [facility] 2025-01-04 11:47 Gestational diabetes mellitus in , controlled by oral hypoglycemic drugs [facility] 2025-01-04 11:47 Encounter for immunization [employer] [facility] 2025-01-17 10:50 Gestational diabetes mellitus in , controlled by oral hypoglycemic drugs [facility]25-[facility]-17 10:51 Gestational diabetes mellitus in , controlled by oral hypoglycemic drugs [facility] 2025-01-17 10:52 Gestational diabetes mellitus in , controlled by oral hypoglycemic drugs [email or web address] 2025-01-19 08:20 Gestational diabetes mellitus in , controlled by oral hypoglycemic drugs [email or web address] 2025-01-23 16:30 Gestational diabetes mellitus in , controlled by oral hypoglycemic drugs [email or web address] 2025-01-24 00:01 Gestational diabetes mellitus in , controlled by oral hypoglycemic drugs [email or web address] 2025-02-02 09:59 Gestational diabetes mellitus in , insulin controlled [email or web address] 2025-02-02 10:08 Gestational diabetes mellitus in , insulin controlled [email or web address] 2025-02-02 10:49 Gestational diabetes mellitus in , insulin controlled [email or web address] 2025-02-06 07:30 Gestational diabetes mellitus in , insulin controlled [facility] 2025-02-10 09:56 Gestational diabetes mellitus in , insulin controlled [facility] 2025-02-14 10:40 Gestational diabetes mellitus in , insulin controlled [facility] 2025-02-17 07:37 Gestational diabetes mellitus in , insulin controlled [facility] 2025-02-17 07:38 Gestational diabetes mellitus in , insulin controlled [email or web address] 2025-02-17 07:38 34 weeks gestation of [email or web address] 2025-02-18 00:01 Gestational diabetes mellitus in , insulin controlled [facility] 2025-02-22 08:42 Gestational diabetes mellitus in , insulin controlled [facility] 2025-02-23 14:26 Encounter for screeni ng for Streptococcus B [email or web address] 2025-02-23 14:26 Allergy status to penicillin [facility] 2025-02-23 14:32 Encounter for screeni ng for Streptococcus B [email or web address] 2025-02-23 14:32 Allergy status to penicillin [email or web address] 2025-02-23 14:51 Allergy status to penicillin [facility] 2025-02-23 15:20 Allergy status to penicillin [facility] 2025-02-23 15:21 Allergy status to penicillin [facility] 2025-02-24 00:04 Encounter for screeni ng for Streptococcus B [facility] 2025-02-24 00:04 Allergy status to penicillin [email or web address] 2025-02-27 06:45 Gestational diabetes mellitus in , controlled by oral hypoglycemic drugs [email or web address] 2025-03-03 10:43 Gestational diabetes mellitus in , insulin controlled [facility] 2025-03-03 10:43 Allergy status to penicillin [facility] 2025-03-03 10:44 Allergy status to penicillin [email or web address] 2025-03-08 15:14 Other specified dise ases and conditions complicating [email or web address] 2025-03-08 15:14 Elevated blood-press ure reading, without diagnosis of hypertension [facility]25-[facility] 15:14 Headache, unspecified [facility] 2025-03-09 14:43 Gestational diabetes mellitus in , insulin controlled [email or web address] 2025-03-09 15:51 Unspecified pre-eclampsia, thir d trimester [email or web address] 2025-03-09 15:51 Gestational diabetes mellitus in , insulin controlled [email or web address] 2025-03-09 15:51 Maternal care for un specified type scar from [facility]25-[facility]-09 15:51 Obesity complicating , third trimester [facility] 2025-03-09 15:51 Encounter for sterilization [facility] 2025-03-09 15:51 38 weeks gestation of [facility] Results/Labs test date facility value unit notes Result panel 1 WHITE BLOOD COUNT 2024-12-17 10:41 [facility] 10.0 x10 3/ul (missing) MEAN PLATELET VOLUME 2024-12-17 10:41 [facility] 10.1 fl (missing) RED CELL DISTRIBUTION WIDTH 2024-12-17 10:41 [facility] 12.7 % (missing) HGB - HEMOGLOBIN 2024-12-17 10:41 [facility] 12.7 g/dl (missing) GLUCOSE,1H PP 50GM DOSE 2024-12-17 10:41 [facility] 171 mg/dl 50g Challenge 1 hr post Glucose < 140 mg/dL Reference: [employer] As of October 2022 testing method has changed, this may include reference ranges. PLT - PLATELET COUNT 2024-12-17 10:41 [facility] 224 10 3/ul (missing) MEAN CORPUSCULAR HEMOGLOBIN 2024-12-17 10:41 [facility] 28.2 pg (missing) MEAN CORPUSCULAR HGB CONC 2024-12-17 10:41 [facility] 33.2 g/dl (missing) HCT - HEMATOCRIT 2024-12-17 10:41 [facility] 38.2 % (missing) RED BLOOD COUNT 2024-12-17 10:41 [facility] 4.50 10 6/ul (missing) MEAN CORPUSCULAR VOLUME 2024-12-17 10:41 [facility] 84.9 fl (missing) RPR 2024-12-17 10:41 [facility] Non Reactive (missing) Performed at: - [facility] [address], [place], [place] [id number] Rn Utilization Management Um: Raghav Dominique MD, Phone: [phone] Result panel 2 CUL,GBS SCREEN 2025-02-23 14:25 [facility] CC.6COLONY COUNT (missing) (missing) CUL,GBS SCREEN 2025-02-23 14:25 [facility] CONFIRMATION AND SUSCEPTIBILITY TESTING BUT NO GROUP B (missing) (missing) CUL,GBS SCREEN 2025-02-23 14:25 [facility] CULTURE IN PROGRESS. RESULTS TO FOLLOW. (missing) (missing) CUL,GBS SCREEN 2025-02-23 14:25 [facility] IDMICID/AMRIK COM* (missing) (missing) CUL,GBS SCREEN 2025-02-23 14:25 [facility] MICREFSENT TO REF LAB FOR SUSCEPTIBILITIES-SEE SEPARATE REPORT (missing) (missing) CUL,GBS SCREEN 2025-02-23 14:25 [facility] PICPRESENT IN CULTURE (missing) (missing) GBSPCR,REFLEX IF PEN ALLERGIC 2025-02-23 14:25 [facility] POSITIVE (missing) VAGINAL CUL,GBS SCREEN 2025-02-23 14:25 [facility] Pending (missing) (missing) CUL,GBS SCREEN 2025-02-23 14:25 [facility] RESULTS IN THE PRESENCE OF NON-VIABLE ORGANISMS. (missing) (missing) O:STRAGA 2025-02-23 14:25 [facility] STRAGASTREP AGALACTIAE - (GROUP B)STREP AGALACTIAE - (GROUP B) (missing) (missing) CUL,GBS SCREEN 2025-02-23 14:25 [facility] STREP AGALACTIAE - (GROUP B) DETECTED BY PCR TESTING. (missing) (missing) CUL,GBS SCREEN 2025-02-23 14:25 [facility] STREPTOCOCCUS WAS ISOLATED. PCR TESTING MAY YIELD POSITIVE (missing) (missing) CUL,GBS SCREEN 2025-02-23 14:25 [facility] SUBSEQUENT SUB-CULTURE SENT TO REFERENCE LABORATORY FOR (missing) (missing) Result panel 3 AEROBE ID RESULT 1 2025-02-28 10:16 [facility] Comment (missing) STREPTOCOCCUS AGALACTIAE SENSITIVITIES. [facility] CODE: [id number]. Microbiological testing to rule out the presence of possible pathogens is in progress. Performed at: [facility] [address], [place], [place] [id number] Rn Utilization Management Um: Raghav Dominique MD, Phone: [phone] AEROBE ID RESULT 1 2025-02-28 10:16 [facility] Enterococcus faecalis (missing) STREPTOCOCCUS AGALACTIAE SENSITIVITIES. [facility] CODE: [id number]. Performed at: [facility] [address], [place], [place] [id number] Rn Utilization Management Um: Raghav Dominique MD, Phone: [phone] AEROBE ID RESULT 1 2025-02-28 10:16 [email or web address] Enterococcus faecalis (missing) STREPTOCOCCUS AGALACTIAE SENSITIVITIES. [facility] CODE: [id number]. Susceptibility testing discontinued, per Chauncey Rodriguez (SIERRA). Performed at: [facility] [address], [place], [place] [id number] Rn Utilization Management Um: Raghav Dominique MD, Phone: [phone] AEROBE ID + SUSCEPTIBILITY 2025-02-28 10:16 [email or web address] Final report (missing) STREPTOCOCCUS AGALACTIAE SENSITIVITIES. [facility] CODE: [id number]. AEROBE ID + SUSCEPTIBILITY 2025-02-28 10:16 [facility] Preliminary report (missing) STREPTOCOCCUS AGALACTIAE SENSITIVITIES. [facility] CODE: [id number]. Result panel 4 PROTEIN/CREATININE RATIO,URINE 2025-03-05 17:10 [facility] 0.3 (missing) (missing) CREATININE,URINE 2025-03-05 17:10 [facility] 142.1 mg/dl As of October 2022 testing method has changed, this may include reference ranges. TOTAL PROTEIN,URINE TIMED 2025-03-05 17:10 [facility] 37 mg/dl As of October 2022 testing method has changed, this may include reference ranges. Result panel 5 BILIRUBIN,TOTAL 2025-03-05 17:50 [facility] 0.4 mg/dl As of October 2022 testing method has changed, this may include reference ranges. CREATININE 2025-03-05 17:50 [facility] 0.7 mg/dl As of October 2022 testing method has changed, this may include reference ranges. ALBUMIN/GLOBULIN RATIO 2025-03-05 17:50 [facility] 1.4 (missing) (missing) ANION GAP 2025-03-05 17:50 [facility] 10.0 (missing) (missing) CHLORIDE 2025-03-05 17:50 [facility] 105 mmol/l As of October 2022 testing method has changed, this may include reference ranges. BUN - BLOOD UREA NITROGEN 2025-03-05 17:50 [facility] 11 mg/dl As of October 2022 testing method has changed, this may include reference ranges. MEAN PLATELET VOLUME 2025-03-05 17:50 [facility] 11.3 fl (missing) WHITE BLOOD COUNT 2025-03-05 17:50 [facility] 11.7 x10 3/ul (missing) RED CELL DISTRIBUTION WIDTH 2025-03-05 17:50 [facility] 13.0 % (missing) HGB - HEMOGLOBIN 2025-03-05 17:50 [facility] 13.2 g/dl (missing) SODIUM 2025-03-05 17:50 [facility] 135 mmol/l (missing) AST ASPARTATE AMINOTRANSFERASE 2025-03-05 17:50 [facility] 18 iu/l As of October 2022 testing method has changed, this may include reference ranges. PLT - PLATELET COUNT 2025-03-05 17:50 [facility] 186 10 3/ul (missing) ALKALINE PHOSPHATASE 2025-03-05 17:50 [facility] 198 iu/l As of October 2022 testing method has changed, this may include reference ranges. GLOBULIN 2025-03-05 17:50 [facility] 2.6 g/dl (missing) ALT ALANINE AMINOTRANSFERASE 2025-03-05 17:50 [facility] 20 iu/l As of October 2022 testing method has changed, this may include reference ranges. CARBON DIOXIDE - CO2 2025-03-05 17:50 [facility] 20 mmol/l As of October 2022 testing method has changed, this may include reference ranges. MEAN CORPUSCULAR HEMOGLOBIN 2025-03-05 17:50 [facility] 28.1 pg (missing) ALBUMIN 2025-03-05 17:50 [facility] 3.6 g/dl As of October 2022 testing method has changed, this may include reference ranges. POTASSIUM 2025-03-05 17:50 [facility] 3.7 mmol/l As of October 2022 testing method has changed, this may include reference ranges. MEAN CORPUSCULAR HGB CONC 2025-03-05 17:50 [facility] 33.5 g/dl (missing) HCT - HEMATOCRIT 2025-03-05 17:50 [facility] 39.4 % (missing) RED BLOOD COUNT 2025-03-05 17:50 [facility] 4.70 10 6/ul (missing) TOTAL PROTEIN 2025-03-05 17:50 [facility] 6.2 g/dl As of October 2022 testing method has changed, this may include reference ranges. GLUCOSE 2025-03-05 17:50 [facility] 76 mg/dl As of October 2022 testing method has changed, this may include reference ranges. MEAN CORPUSCULAR VOLUME 2025-03-05 17:50 [facility] 83.8 fl (missing) CALCIUM 2025-03-05 17:50 [facility] 9.3 mg/dl As of October 2022 testing method has changed, this may include reference ranges. GFR - MDRD 2025-03-05 17:50 [facility] 96 (missing) The IDMS-traceable MDRD Study Equation has been validated extensively in and populations between the ages of 18 and 70 with impaired kidney function (eGFR < 60 mL/min/1.73m2) and has shown good performance for patients with all common causes of kidney disease. Although this equation has not been validated for patients older than 70, an MDRD-derived eGFR may still be a useful tool for providers caring for patients older than 70. References: http://www.nkdep. nih.gov/lab-evalu ation/gfr/creatin ine-stand ardization, last updated June 2011. Result panel 6 NUCLEATED RED BLOOD CELLS AUTO 2025-03-09 14:00 [facility] 0.0 /100wbc (missing) BASOPHILS # (AUTO) 2025-03-09 14:00 [facility] 0.0 10 3/ul (missing) NRBC ABSOLUTE COUNT (AUTO) 2025-03-09 14:00 [facility] 0.00 x10 3/ul (missing) EOSINOPHILS # (AUTO) 2025-03-09 14:00 [facility] 0.2 10 3/ul (missing) BILIRUBIN,TOTAL 2025-03-09 14:00 [facility] 0.5 mg/dl As of October 2022 testing method has changed, this may include reference ranges. MONOCYTES # (AUTO) 2025-03-09 14:00 [facility] 0.8 10 3/ul (missing) CREATININE 2025-03-09 14:00 [facility] 0.8 mg/dl As of October 2022 testing method has changed, this may include reference ranges. ALBUMIN/GLOBULIN RATIO 2025-03-09 14:00 [facility] 1.1 (missing) (missing) ANION GAP 2025-03-09 14:00 [facility] 10.0 (missing) (missing) CHLORIDE 2025-03-09 14:00 [facility] 105 mmol/l As of October 2022 testing method has changed, this may include reference ranges. MEAN PLATELET VOLUME 2025-03-09 14:00 [facility] 11.9 fl (missing) WHITE BLOOD COUNT 2025-03-09 14:00 [facility] 12.2 x10 3/ul (missing) RED CELL DISTRIBUTION WIDTH 2025-03-09 14:00 [employer] [facility] 13.0 % (missing) HGB - HEMOGLOBIN 2025-03-09 14:00 [facility] 13.4 g/dl (missing) SODIUM 2025-03-09 14:00 [facility] 135 mmol/l (missing) ALT ALANINE AMINOTRANSFERASE 2025-03-09 14:00 [facility] 18 iu/l As of October 2022 testing method has changed, this may include reference ranges. PLT - PLATELET COUNT 2025-03-09 14:00 [facility] 196 10 3/ul (missing) LYMPHOCYTES # (AUTO) 2025-03-09 14:00 [facility] 2.9 10 3/ul (missing) AST ASPARTATE AMINOTRANSFERASE 2025-03-09 14:00 [facility] 20 iu/l As of October 2022 testing method has changed, this may include reference ranges. CARBON DIOXIDE - CO2 2025-03-09 14:00 [facility] 20 mmol/l As of October 2022 testing method has changed, this may include reference ranges. ALKALINE PHOSPHATASE 2025-03-09 14:00 [facility] 219 iu/l As of October 2022 testing method has changed, this may include reference ranges. MEAN CORPUSCULAR HEMOGLOBIN 2025-03-09 14:00 [facility] 27.9 pg (missing) GLOBULIN 2025-03-09 14:00 [facility] 3.2 g/dl (missing) ALBUMIN 2025-03-09 14:00 [facility] 3.6 g/dl As of October 2022 testing method has changed, this may include reference ranges. POTASSIUM 2025-03-09 14:00 [facility] 3.7 mmol/l As of October 2022 testing method has changed, this may include reference ranges. MEAN CORPUSCULAR HGB CONC 2025-03-09 14:00 [facility] 33.6 g/dl (missing) HCT - HEMATOCRIT 2025-03-09 14:00 [facility] 39.9 % (missing) RED BLOOD COUNT 2025-03-09 14:00 [facility] 4.80 10 6/ul (missing) TOTAL PROTEIN 2025-03-09 14:00 [facility] 6.8 g/dl As of October 2022 testing method has changed, this may include reference ranges. GLUCOSE 2025-03-09 14:00 [facility] 70 mg/dl As of October 2022 testing method has changed, this may include reference ranges. NEUTROPHILS # (AUTO) 2025-03-09 14:00 [facility] 8.3 10 3/ul (missing) CALCIUM 2025-03-09 14:00 [facility] 8.9 mg/dl As of October 2022 testing method has changed, this may include reference ranges. GFR - MDRD 2025-03-09 14:00 [facility] 82 (missing) The IDMS-traceable MDRD Study Equation has been validated extensively in and populations between the ages of 18 and 70 with impaired kidney function (eGFR < 60 mL/min/1.73m2) and has shown good performance for patients with all common causes of kidney disease. Although this equation has not been validated for patients older than 70, an MDRD-derived eGFR may still be a useful tool for providers caring for patients older than 70. References: http://www.nkdep. nih.gov/lab-evalu ation/gfr/creatin ine-stand ardization, last updated June 2011. MEAN CORPUSCULAR VOLUME 2025-03-09 14:00 [facility] 83.1 fl (missing) BUN - BLOOD UREA NITROGEN 2025-03-09 14:00 [facility] 9 mg/dl As of October 2022 testing method has changed, this may include reference ranges. Social History date description facility
[2025-03-09] MEDS ORDERED: ONDANSETRON 4 MG/2 ML VIAL ONE (15:59)
[2025-03-09] MEDS ORDERED: OXYTOCIN 10 UNIT/ML VIAL ONE (16:54)
[2025-03-09] MEDS ORDERED: ROPIVACAINE 0.5% PF 20 ML VIAL ONE (17:47)
[2025-03-09] MEDS ORDERED: DEXAMETHASONE 4 MG/ML VIAL ONE (17:47)
[2025-03-09] MEDS ORDERED: CALCIUM CARBONATE CHEW 500 MG TABLET PO PRN (18:02)
[2025-03-09] MEDS ORDERED: TRANEXAMIC ACID IN NACL 1,000 MG/100 ML BAG IV PRN (18:02)
[2025-03-09] MEDS ORDERED: hydrALAZINE INJ 20 MG/ML VIAL IVP PRN ×2 (18:02)
[2025-03-09] MEDS ORDERED: SIMETHICONE CHEW 80 MG TABLET PO PRN (18:02)
[2025-03-09] MEDS ORDERED: NALOXONE 0.4 MG/ML VIAL IVP PRN ×2 (18:02→18:24)
[2025-03-09] MEDS ORDERED: CARBOPROST TROMETHAMINE 250 MCG/ML VIAL IM PRN (18:02)
[2025-03-09] MEDS ORDERED: KETOROLAC 30 MG/ML VIAL ONE (18:02)
[2025-03-09] MEDS ORDERED: LABETALOL 20 MG/4 ML SYRINGE IVP PRN ×3 (18:02)
--- NOTE | 2025-03-09 18:18 | OPERATIVE REPORT ---
Operative Report General Admit Date: 03/09/25 Procedure Data: Operation Date: 03/09/25 16:15 Proposed Procedures p Section, REPEAT(Not Applicable) - Nita Palacio MD Anesthesia Type Spinal Pre-Op Diagnosis: Pre-eclampsia, prior , GDMA2, sterilization request, 38 wks gest Post Op Diagnosis: Same now s/p repeat with bilateral salpingectomy Procedure Note Intake, IV Amount (ml): 2,000 Estimated Blood Loss (ml): 462 Output, Urine Amount (ml): 100 Pathology: Bilateral fallopian tubes Indications: 35 yo at 38+1 wks presented meeting blood pressure and urine protein criteria for pre-eclampsia. Patient with hx of prior , desiring repeat. She also requested sterilization at the time of delivery. Findings: - Viable male infant delivered from FLAVIO position 03/09/2025 at 1655. No nuchal cord was present. APGARS were 8 at one minute and 9 at five minutes. weight was 3116 gm. - Placenta was expressed, and the uterine cavity swept. The placenta appeared normal and intact. - Tubes, ovaries, and uterus were overall normal in appearance. A small 1.5 cm paratubal cyst was present on the left side. - Uterine tone was good after start of Pitocin. Complications: None Other Other Information/Narrative: Preoperative Diagnosis: - Pre-eclampsia without severe features - Prior , desiring repeat - Sterilization requested - Gesational diabetes A2 - at 38 weeks gestation Postoperative Diagnosis: - Same as above now s/p repeat low transverse w/ bilateral salpingectomy Procedure: - Repeat low-transverse with two-layer hysterotomy closure - Bilateral salpingectomy Surgeon: Dr. Nita Palacio Sales Floor Team Member: Dr. Deedee Cisneros Anesthesia: - Spinal - TAP Block Qualitative Blood Loss: 462 ml IV Fluids: 2000 ml Urine Output: 100 ml Medications: - Pitocin bolus Specimen: - Bilateral fallopian tubes Indications: 35 yo at 38+1 wks presented meeting blood pressure and urine protein c riteria for pre-eclampsia. Patient with hx of prior , desiring repeat. She also requested sterilization at the time of delivery. Expectations and risks were discussed, and surgical consent form reviewed and signed. Findings: - Left fascial incision with pre-peritoneal fat adhesed. Omentum densely adhered to right/upper aspect of the incision (left intact). Filmy bladder a dhesion present. Intact lower uterine segment with no evidence of dehiscence. - Viable male infant delivered from FLAVIO position 03/09/2025 at 1655. No nuchal cord was present. APGARS were 8 at one minute and 9 at five minutes. weight was 3116 gm. - Placenta was expressed, and the uterine cavity swept. The placenta appeared normal and intact. - Tubes, ovaries, and uterus were overall normal in appearance. A small 1.5 cm paratubal cyst was present on the left side. - Uterine tone was good after start of Pitocin. Operative Technique: The patient was taken to the operative room where spinal was placed without difficulty. Levine catheter was inserted. The abdomen was prepped and draped in sterile fashion, and surgical Time Out performed. After confirming adequate anesthesia with an Allis clamp, a Pfannenstiel incision was created over her old scar. The subcutaneous tissue was incised sharply. The fascia was sharply incised at the midline, then extended laterally sharpy. The right rectus was not well-visualized due to presence of adhesed pre-peritoneal fatty tissue. The peritoneum was entered incidentally during this process. The superior rectus fascia was grasped with Rabia clamps at the midline and tented up while the rectus muscle was sharply dissected off posteriorly. The same was then performed at the inferior rectus fascia. The muscles were sharply inferiorly. This peritoneal incision was then extended with gentle stretch. Germán retractor was then placed. The lower uterine segment was incised in low transverse fashion then bluntly enlarged in a cranial-caudal direction. Clear amniotic fluid was noted at the time of membrane rupture. The infants head was grasped and delivered through the incision with additional fundal pressure. Shoulders and corpus followed easily thereafter. The baby had good tone and respiratory effort. He was dried and stimulated. After one minute delay, the cord was clamped and cut, and the baby taken to the warmer. Cord blood was obtained, then the placenta delivered by expression and uterine massage. Uterine tone was good with Pitocin alone. The hysterotomy was closed with a running, locked suture of 0 Chromic. Once hemostasis was achieved, attention was turned to the bilateral salpingectomy. The left fallopian tube was grasped with [place] clamps and followed out to the fimbriated end. Using the hand-held Ligasure, the cornual tube was cross-clamped, cauterized, and cut. The mesosalpinx was incised with serial pedicles until the left tubo-ovarian pedicle was incised, freeing the left tube from the left ovary and mesosalpinx. Care was taken to avoid the ovarian vessels. The right fallopian tube was then removed in similar fashion. Hemostasis of the incision was achieved with additional cautery as needed. The uterine incision was reinspected and hemostatic after application of cautery where needed. The peritoneum was reapproximated with running non-locked suture of 2-0 Vicryl. The rectus muscle was then examined and hemostatic after application of cautery where needed. The rectus fascia was closed with a running non-locked suture of 0 PDS. The subcutaneous tissue was irrigated then reapproximated with interrupted 2-0 Vicryl. The skin was then closed in a subcuticular fashion using 4-0 Monocryl. Mastisol, steri-strips, and dressing were then applied. Sponge, lap, and needle count were completed and correct. The patient tolerated the procedure well, overall. TAP block was performed by Anesthesia, and she was subsequently moved to the recovery room in stable condition. Sales Floor Team Member Attestation: In this non-teaching hospital, a hand frame surgical elastic knitter (Dr. Deedee Cisneros) was needed to perform certified surgical tech/first assistant duties. The learning support assistant was critical with retraction of tissue, cutting suture, gently stretching the peritoneum and abdominal wall, applying pressure on the upper abdomen and uterus to deliver the baby, performing initial resuscitative steps for the baby on the maternal abdomen, and assisting with closure of the surgical layers and skin.
[2025-03-09] MEDS: OXYTOCIN/SODIUM CHLORIDE 500 ML IV PRN (18:21)
[2025-03-09] MEDS ORDERED: HYDROmorphone 0.5 MG/0.5 ML SYRINGE IVP PRN (18:24)
[2025-03-09] MEDS ORDERED: ATROPINE ABBOJECT 1 MG/10 ML SYRINGE IVP PRN (18:24)
[2025-03-09] MEDS ORDERED: ONDANSETRON 4 MG/2 ML VIAL IVP PRN (18:24)
[2025-03-09] MEDS ORDERED: fentaNYL 100 MCG/2 ML VIAL IVP PRN (18:24)
[2025-03-09] MEDS ORDERED: MORPHINE 2 MG/ML CARPUJECT IVP PRN (18:24)
--- NOTE | 2025-03-09 18:28 | ANESTHESIA POST OP EVALUATION ---
Anesthesia Post Eval Post Anesthesia Eval Vitals: Last Vital Signs Temp 36.6 C 03/09/25 14:24 Pulse 79 03/09/25 15:30 Resp 17 03/09/25 14:05 BP 120/78 03/09/25 15:30 Pulse Ox 98 03/09/25 14:05 CV Function Including HR & BP: Stable Pain Control: Satisfactory Nausea & Vomiting: Negative Mental Status: Baseline Respiratory Status: Airway Patent Hydration Status: Satisfactory Anesthesia Complications: None
[2025-03-09] MEDS ORDERED: LACTATED RINGERS 1,000 ML IV SCH (19:00)
[2025-03-09] MEDS: ACETAMINOPHEN 500 MG TABLET PO SCH (20:00)
[2025-03-09] MEDS: DOCUSATE SODIUM 100 MG CAPSULE PO SCH (20:54)
[2025-03-10] MEDS: KETOROLAC 30 MG/ML VIAL IVP SCH
[2025-03-10] MEDS: oxyCODONE 5 MG TABLET PO PRN (01:17)
[2025-03-10 07:00] LABS: HCT - HEMATOCRIT 35.2 % (37.0-47.0); HGB - HEMOGLOBIN 11.9 g/dL (12.0-16.0); MEAN PLATELET VOLUME 11.5 fL (7.9-10.8); PLT - PLATELET COUNT 178.0 10^3/uL (130-450); RED CELL DISTRIBUTION WIDTH 12.8 % (12.0-15.0)
[2025-03-10 07:22] LABS: ALT ALANINE AMINOTRANSFERASE 14.0 IU/L (10-60); AST ASPARTATE AMINOTRANSFERASE 18.0 IU/L (10-42); BUN - BLOOD UREA NITROGEN 11.0 mg/dL (6-20); CARBON DIOXIDE - CO2 21.0 mmol/L (21-32); CREATININE 0.8 mg/dL (0.6-1.3); GFR - MDRD 82.0 (>89)
[2025-03-10] MEDS: ENOXAPARIN 40 MG/0.4 ML SYRINGE SUBQ SCH (07:29)
--- NOTE | 2025-03-10 08:49 | PROVIDER PROGRESS NOTE ---
Subjective Prog Note Date Prog Note Date: 03/10/25 Prog Note Time: 10:18 Subjective Subjective: Overall feeling well this morning. Catheter was removed around 7am and she has been out of bed once, not yet voided. She tolerated breakfast this morning without N/V. Feels that pain is well controlled with current regimen. Not yet passing flatus. Planning to breastfeed. Reports bleeding is minimal. Denies JOVEL, vision changes, CP, SOB, LE swelling. Current Medications Current Medications Current Medications: Current Medications Generic Name Dose Route Start Last Admin Trade Name Freq PRN Reason Stop Dose Admin Acetaminophen 1,000 mg 03/09/25 19:00 03/10/25 03:59 Acetaminophen 500 Mg Tablet PO 1,000 mg Q8H SOTO Administration Calcium Carbonate/Glycine 1,000 mg 03/09/25 18:02 Calcium Carbonate Chew 500 Mg Tablet PO Q6HR PRN Heartburn Carboprost Tromethamine 250 mcg 03/09/25 18:02 Carboprost Tromethamine 250 Mcg/Ml Vial IM .ONCE PRN Hemorrhage Diphenhydramine HCl 25 mg 03/09/25 18:02 Diphenhydramine 25 Mg Capsule PO Q6HR PRN Allergy Symptoms Docusate Sodium 200 mg 03/09/25 21:00 03/10/25 08:41 Docusate Sodium 100 Mg Capsule PO 200 mg BID SOTO Administration Enoxaparin Sodium 40 mg 03/10/25 07:00 03/10/25 07:29 Enoxaparin 40 Mg/0.4 Ml Syringe SUBQ 40 mg DAILY SOTO Administration Hydralazine HCl 10 mg 03/09/25 18:02 Hydralazine Inj 20 Mg/Ml Vial IVP .ONCE PRN SBP> or= 160 OR DBP> or= 110 Protocol Hydralazine HCl 5 - 20 mg 03/09/25 18:02 Hydralazine Inj 20 Mg/Ml Vial IVP Q20M PRN SBP> or= 160 OR DBP> or= 110 Protocol Lactated Ringer's 1,000 mls @ 125 mls/hr 03/09/25 16:00 03/10/25 02:00 Lr IV 0 mls/hr .Q8H SOTO Infusion Oxytocin/Sodium Chloride 500 mls @ 999 mls/hr 03/09/25 18:02 03/09/25 20:21 Pitocin/Sodium Chloride IV Infused PRN PRN Titration POST- HEMORR PREVENTION Protocol 999 MILLIUNIT/MIN Tranexamic Acid 1,000 mg in 100 mls @ 500 mls/hr 03/09/25 18:02 Tranexamic 1,000 Mg/100ml-Nacl IV PRN PRN Uterine atony/ Uterine Bleed Ibuprofen 600 mg 03/10/25 18:00 Ibuprofen 600 Mg Tablet PO Q6HR SOTO Ketorolac Tromethamine 30 mg 03/10/25 00:00 03/10/25 07:23 Ketorolac 30 Mg/Ml Vial IVP 03/10/25 12:01 30 mg Q6HR SOTO Administration Labetalol HCl 20 - 40 mg 03/09/25 18:02 Labetalol 20 Mg/4 Ml Syringe IVP Q10M PRN SBP> or= 160 OR DBP> or= 110 Protocol Labetalol HCl 20 mg 03/09/25 18:02 Labetalol 20 Mg/4 Ml Syringe IVP .ONCE PRN SBP> or= 160 OR DBP> or= 110 Protocol Labetalol HCl 20 - 80 mg 03/09/25 18:02 Labetalol 20 Mg/4 Ml Syringe IVP Q10M PRN SBP> or= 160 OR DBP> or= 110 Protocol Naloxone HCl 0.4 mg 03/09/25 18:02 Naloxone 0.4 Mg/Ml Vial IVP .ONCE PRN Opioid overdose Nifedipine 10 - 20 mg 03/09/25 18:02 Nifedipine 10 Mg Capsule PO Q20M PRN SBP> or= 160 OR DBP> or= 110 Protocol Oxycodone HCl 5 mg 03/09/25 18:02 03/10/25 01:17 Oxycodone 5 Mg Tablet PO 5 mg Q4HR PRN Administration Severe Pain 6 -10 Simethicone 80 mg 03/09/25 18:02 Simethicone Chew 80 Mg Tablet PO TID PRN Gas Objective Vital Signs/Intake & Output Reviewed Vital Signs: Yes Vital Signs: Vital Signs x48h Temp Pulse Resp BP Pulse Ox 03/10/25 08:45 97.9 F 75 17 109/71 95 03/10/25 07:00 97.9 F 67 16 107/67 95 03/10/25 04:00 97.9 F 66 16 125/73 96 Intake & Output: Intake & Output 12/02/25 03/08/25 03/09/25 03/10/25 23:59 23:59 23:59 23:59 Intake Total 3500 / 3500 944 / 944 Output Total 200 / 200 430 / 430 Balance 3300 / 3300 514 / 514 Weight (kg) 233 lb Objective Comments/Other: Gen: NAD CV: RRR Resp: CTAB, no crackles Abd: soft, appropriately TTP, non-distended, no rebound/guarding. Bandage in place is clearn and dry. Ext: no LE edema, no evidence of DVT Lab Results 03/10/25 06:50 03/10/25 06:50 Other Labs: Lab Results x24hrs 03/10/25 03/09/25 Range/Units 06:50 14:00 WBC 15.5 H 12.2 H (4.8-10.8) x10^3/uL RBC 4.20 4.80 (4.20-5.40) 10^6/uL Hgb 11.9 L 13.4 (12.0-16.0) g/dL Hct 35.2 L 39.9 (37.0-47.0) % MCV 83.8 83.1 (81.0-99.0) fL MCH 28.3 27.9 (27.0-31.0) pg MCHC 33.8 33.6 (32.0-36.0) g/dL RDW 12.8 13.0 (12.0-15.0) % Plt Count 178 196 (130-450) 10^3/uL MPV 11.5 H 11.9 H (7.9-10.8) fL Neut # (Auto) 8.3 H (1.5-6.6) 10^3/uL Lymph # (Auto) 2.9 (1.5-3.5) 10^3/uL [place] # (Auto) 0.8 (0.0-1.0) 10^3/uL Eos # (Auto) 0.2 (0.0-0.7) 10^3/uL Baso # (Auto) 0.0 (0.0-0.1) 10^3/uL Absolute Nucleated RBC 0.00 x10^3/uL Nucleated RBC % 0.0 /100WBC Sodium 134 L 135 (135-145) mmol/L Potassium 3.9 3.7 (3.5-4.5) mmol/L Chloride 105 105 (101-111) mmol/L Carbon Dioxide 21 20 L (21-32) mmol/L Anion Gap 8.0 10.0 (6-13) BUN 11 9 (6-20) mg/dL Creatinine 0.8 0.8 (0.6-1.3) mg/dL Estimated GFR (MDRD) 82 L 82 L (>89) Glucose 110 H 70 L (74-104) mg/dL Calcium 8.9 8.9 (8.5-10.3) mg/dL Total Bilirubin 0.4 0.5 (0.2-1.0) mg/dL AST 18 20 (10-42) IU/L ALT 14 18 (10-60) IU/L Alkaline Phosphatase 152 H 219 H (42-121) IU/L Total Protein 5.6 L 6.8 (6.4-8.9) g/dL Albumin 3.1 L 3.6 (3.2-5.5) g/dL Globulin 2.5 3.2 (2.1-4.2) g/dL Albumin/Globulin Ratio 1.2 1.1 (1.0-2.2) Blood Type A POSITIVE Antibody Screen NEGATIVE Assessment/Plan Problem List (1) Status post delivery: Impression: - Overall doing well, continue routine postoperative/ care. (2) care and examination of lactating mother: (3) Pre-eclampsia in third trimester: Impression: - Asymptomatic. BPs currently normal range. Repeat labs this AM normal. Continue to monitor. (4) White classification A2 gestational diabetes mellitus (GDM), insulin controlled:
--- NOTE | 2025-03-10 10:12 | PHARMACY PROGRESS NOTE ---
Best Possible Medication History Admit Date and Time: 03/09/25 [id number] Home Medications Medication Instructions Recorded Confirmed Type albuterol sulfate 90 mcg/actuation 2 inh inhalation Q6 H PRN shortness 04/11/24 03/10/25 History breath activated powder inhaler of breath (ProAir RespiClick) vits no.126-ferrous fum 1 tab PO DAILY 03/10/25 History 28 mg iron-folic acid 800 mcg tablet (Classic ) cholecalciferol (vitamin D3) 50 50 mcg PO QDAY 5 03/10/25 History mcg (2,000 unit) capsule blood-glucose sensor #3 ea 01/02/25 03/03/25 Rx metformin 500 mg tablet 1,000 mg (2 x 500 mg) PO BID #180 01/08/25 03/10/25 Rx tabs blood-glucose sensor (Dexcom G7 #3 ea 02/02/25 5 Rx Sensor device) insulin syringe-needle U-100 0.3 #100 ea 02/08/2502/05 Rx mL 31 gauge x 5/16" (CareTouch Insulin Syringe) pen needle, diabetic 29 gauge x #100 ea 02/08/2503/03 Rx 1/2" (Ultra-Thin II Insulin Pen [place]) insulin glargine 100 unit/mL (3 12 unit subcut QPM 03/10/25 History mL) subcutaneous pen (Lantus Solostar U-100 Insulin) Processed by: Pharmacy Medications reviewed in ED?: No Patient Interview: Completed Secondary Source(s): Physician records, Pharmacy records and Insurance records [facility] Statement: As the person ultimately responsible for medication therapy, providers are able to order a medication from an existing home medication list in [facility] via the "Reconcile Routine" prior to Confirmation of that medication by marketing support specialist. Such practice is discouraged except when the physician, in their clinical judgment, deems that a medical need exists for a medication without regard to previous use.
[2025-03-10] MEDS: IBUPROFEN 600 MG TABLET PO SCH (18:32)
--- NOTE | 2025-03-11 11:28 | Discharge Summary ---
Discharge Summary Admit Date: 03/09/25 Discharge Date: 03/11/25 Discharging Provider: Barron Pal MD HPI History of Present Illness: Admission Diagnosis: - SIUP at 38w1d - preeclampsia without severe features - H/o delivery - A2DM on metformin and insulin - BMI 40 - Desires permanent sterilization Discharge Diagnosis: - Same, delivered via repeat CS Procedures: repeat LTCS with bilateral salpingectomy Hospital Course: Rhoda is a 35 yo who was dx with preeclampsia without severe features with mild range BPs and protein creatinine ratio of 0.3 at 38w1d. Delivery was recommended. She underwent repeat delivery with bilateral salpingectomy with a QBL of 462cc. She was noted to have some adhesive disease at time of (Left fascial incision with pre-peritoneal fat adhesed. Omentum densely adhered to right/upper aspect of the incision (left intact). Filmy bladder adhesion present.). Her course uncomplicated with normal range blood pressures and asymptomatic for preeclampsia. Condition on Discharge: SUBJECTIVE: day 2 She feels well and ready to go home. Pain is well controlled with current medications. The baby is doing well. Baby is feeding via . She is ambulating well, tolerating normal diet, urinating without difficulty. Flatus has been passed. Lochia is reported as minimal. Denies JOVEL, vision changes, CP, SOB, dizziness. OBJECTIVE: Vital signs reviewed GENERAL: NAD CV: RRR Resp: non labored respirations, CTAB, no crackles ABD: soft, appropriately TTP, fundus firm INCISION: Dressing removed. Incision clean and dry with steristrips in place. No induration, drainage, or erythema. EXT: minimal lower extremity edema; No evidence of DVT LAB & IMAGING STUDIES: See below PLAN: Plan for discharge home with follow up in clinic in 1 week (Thu or ). Reviewed home care instructions and medications. Patient counseled regarding signs and symptoms of infection, excessive bleeding, vaginal rest and activity restrictions. Preeclampsia precautions were reviewed. Discussed that additional support is available in our clinic if needed. ALLERGIES Allergies Allergy/AdvReac Type Severity Reaction Status Date / Time penicillin V Allergy Unknown Verified 02/17/25 14:25 MEDICATIONS Ambulatory Orders Medication Instructions Recorded Confirmed albuterol sulfate 90 mcg/actuation 2 inh inhalation Q6 H PRN shortness 04/11/24 03/10/25 breath activated powder inhaler of breath (ProAir RespiClick) vits no.126-ferrous fum 1 tab PO DAILY 03/10/25 28 mg iron-folic acid 800 mcg tablet (Classic ) cholecalciferol (vitamin D3) 50 50 mcg PO QDAY 5 03/10/25 mcg (2,000 unit) capsule magnesium oxide 400 mg (241.3 mg 200 mg PO DAILY 03/1003/10/25 magnesium) tablet (MagOx) acetaminophen 500 mg tablet 1,000 mg (2 x 500 mg) PO Q 8H PRN 03/11/25 (Tylenol Extra Strength) pain #90 tabs ibuprofen 600 mg tablet 600 mg PO Q6HR PRN pain #90 tabs 03/11/25 metformin 500 mg tablet 500 mg PO DAILY #90 tabs 09/28 oxycodone 5 mg tablet 5 mg PO Q6HR PRN pain #20 ta bs 03/11/25 sennosides 8.6 mg capsule (senna) 8.6 mg PO DAILY PRN constipation 03/11/25 #30 caps PHYSICAL EXAM AT DISCHARGE Vital Signs: Vital Signs x48h Temp Pulse Pulse Resp BP Pulse Ox 03/11/25 07:35 97.7 F 65 16 125/76 96 03/11/25 03:30 97.7 F 71 16 119/86 96 LABS 03/10/25 06:50 03/10/25 06:50 Discharge Plan Discharge Patient Disposition: 01 Home, Self Care Prescriptions: New acetaminophen [Tylenol Extra Strength] 500 mg Tablet 1,000 mg PO Q8H PRN (Reason: pain) Qty: 90 0RF ibuprofen 600 mg Tablet 600 mg PO Q6HR PRN (Reason: pain) Qty: 90 0RF oxycodone 5 mg Tablet 5 mg PO Q6HR PRN (Reason: pain) Qty: 20 0RF senna 8.6 mg capsule 8.6 mg PO DAILY PRN (Reason: constipation) Qty: 30 0RF metformin 500 mg tablet 500 mg PO DAILY Qty: 90 3RF Continued magnesium oxide [MagOx] 400 mg (241.3 mg magnesium) tablet 200 mg PO DAILY ProAir RespiClick 90 mcg/actuation aerosol powdr breath activated 2 inh inhalation Q6H PRN (Reason: shortness of breath) Classic 28 mg iron- 800 mcg tablet 1 tab PO DAILY cholecalciferol (vitamin D3) 50 mcg (2,000 unit) capsule 50 mcg PO QDAY Discontinued metformin 500 mg tablet 1,000 mg PO BID Qty: 180 2RF (DME) insulin syringe-needle U-100 [CareTouch Insulin Syringe] 0.3 mL 31 gauge x 5/16" syringe See Rx Instructions .Route Qty: 100 8RF Rx Instructions: As directed (DME) pen needle, diabetic [Ultra-Thin II Ins Pen [place]] 29 gauge x 1/2" needle See Rx Instructions .Route Qty: 100 8RF Rx Instructions: As directed (DME) blood-glucose sensor Device See Rx Instructions .Route Qty: 3 4RF Rx Instructions: As directed any CGM brand is fine. insulin glargine [Lantus Solostar U-100 Insulin] 100 unit/mL (3 mL) insulin pen 12 unit subcut QPM Rx Instructions: with all needed supplies. increase dose by 2 units every 2 nights until fasting sugar is less than 95. (DME) Dexcom G7 Sensor Device See Rx Instructions .Route Qty: 3 4RF Rx Instructions: As directed Activity Restrictions/Additional Instructions: - Recommend pelvic rest (no intercourse, no tampons) until 6 weeks . - No driving for approximately 2 weeks. - You may shower. Let water and soap run over incision, no scrubbing. Monitor for signs/symptoms of preeclampsia: - Take your blood pressure at home daily or if you are feeling unwell - If your blood pressure is greater than 160 systolic or 110 diastolic (160/110), then you should present to the emergency department. - If you have symptoms of severe preeclampsia, such as severe headache, vision changes, pain in your upper right or mid abdomen, sudden onset severe swelling, chest pain, or shortness of breath then you should present to the emergency department. Diet: Regular Print Language: Peruvian Patient Instructions: Breast Care After , After a Follow-up Care: Deedee Cisneros MD [Provider Admit Priv/Credential, Obstetrics/Gynecology]
[2025-03-11 11:56] VITALS: TEMP 97.9
[2025-03-11 13:35] VITALS: BP 123/80; O2SAT 96
--- NOTE | 2025-03-11 15:27 | Labor Flowsheet ---
Labor Flowsheet Datetime Report Generated by CPN: 03/11/2025 15:26 Datetime: 03/09/2025 15:30 VITAL SIGNS NBP Sys/Jackelyn/Mean (mmHg): 120 : 78 : 88 Pulse: 79 Datetime: 03/09/2025 15:29 SpO2 (%): 100
== END 2025-03-11 13:40 | disposition home or self-care (01) | DRG 785 ==
LOC: WFO 13:38 → FBP 13:39
PROVIDERS: ADMIT Obstetrics & Gynecology; ATTEND Obstetrics & Gynecology